=== PATIENT | female | born 1995 | race Caucasian/White ===

== ENCOUNTER 2019-10-12 10:57 | Emergency (ER) | payer OTHER, MEDICAID, SELFPAY ==
[2019-10-12 11:07] VITALS: BP 129/74; PULSE 74; RESP 18; TEMP 36.9; O2SAT 99; BMI 38.4
--- NOTE | 2019-10-12 11:15 | ED.SKABFB ---
HPI - Skin/Abscess/Foreign Bdy <ISMA BuiP - Last Filed: 10/12/19 12:41> General Chief complaint: Skin/Abscess/Foreign Body Stated complaint: possible infection of R big toe, painful Time Seen by Provider: 10/12/19 11:01 Source: patient Mode of arrival: Family Vehicle Limitations: no limitations History of Present Illness HPI narrative: This is a 24 year female, some day smoker, presents to ED with significant other with chief complain of right great toe discomfort. Patient reports she had bumped her great toe couple of months ago since then her nail has grown weak and slightly lifted off from the nail bed. She trimmed her toenail short a couple of days ago afraid that it will catch on something and could be pulled up/off since then she has been having constant throbbing discomfort as 6/10 with occasional increase in pain. Patient denies fever, drainage, increasing redness or warmth on affected site. Patient tends to have ingrown toenail but it has not been this bad. Patient reports unable to wear regular shoes due to discomfort. Reports updated tetanus immunization. Related Data Previous Rx's Medication Instructions Recorded triamcinolone acetonide 1 applictn TOP BID #15 gram 10/12/19 Allergies Allergy/AdvReac Type Severity Reaction Status Date / Time No Known Drug Allergies Allergy Verified 10/12/19 11:13 Review of Systems <SUBHASH Bui - Last Filed: 10/12/19 12:41> Review of Systems Narrative: General: Denies fever, chills, fatigue, malaise, sweats. HEENT: Denies sinus pain, ear pain, sore throat, difficulty swallowing, dizziness. Respiratory: Denies dyspnea, cough, wheezing, hemoptysis, sputum. Cardiovascular: Denies chest pain, palpitations, orthopnea, edema. Gastrointestinal: Denies nausea, vomiting, abdominal pain, diarrhea, constipation, melena. : Denies dysuria, frequency, incontinence, hematuria, urinary retention. Musculoskeletal: See HPI Skin: Denies rash, skin lesions, or other. Neurologic: Denies weakness, headache, numbness, change in speech, confusion, seizures, incoordination. Psychiatric: No concerning psychosocial issues. 12-point review of systems is negative except for those stated above. Patient History <SUBHASH Bui - Last Filed: 10/12/19 12:41> Surgical History Hx of tonsillectomy (Acute) Social History Smoking Status: Current some day smoker Smoking Status: Current some day smoker tobacco type: cigarettes alcohol intake frequency: 0-2 drinks per day Substance Use Type: does not use Exam <SUBHASH Bui - Last Filed: 10/12/19 12:41> Narrative Exam Narrative: General appearance: well developed, well nourished, in no acute distress. Head: normocephalic, atraumatic, no scalp lesions, non-tender. ENT: Hearing grossly intact. Nose without bleeding, purulent dischargedeviation. Mucous membrane moist, no mucosal lesion. Throat without erythema, tonsillar hypertrophy or exudate. Uvula in midline, airway patent. Neck/Thyroid: neck supple, full range of motion, no visible masses or meningeal signs. No JVD, non-tender without lymphadenopathy. Skin: no suspicious rashes, lesions over visible areas. Warm and dry and appropriate color for ethnicity. Heart: no clubbing, no cyanosis, no edema. Lungs: Breathing even and unlabored. No stridor. No accessory muscles used. Able to speak in full sentences. Chest: normal shape and expansion. Abdomen: non-obese, non-distended. Neurologic: alert and oriented. Cognitive exam, MARKETING CONSULTANT and PNS grossly intact on informal exam. Psych: good eye contact, normal affect. Initial Vital Signs Initial Vital Signs: Vital Signs Temperature 98.4 F 10/12/19 11:07 Pulse Rate 74 10/12/19 11:07 Respiratory Rate 18 10/12/19 11:07 Blood Pressure 129/74 10/12/19 11:07 Pulse Oximetry 99 10/12/19 11:07 Extrem Right lower extremity: foot Details: normal to inspection (Great toenails grew out off the skin and curved into lateral nail folds and into skin), tenderness Location: of the great toe Location: at the distal phalanx (Around the nail), toes with normal ROM, no edema, vascular exam Details: dorsalis pedis pulse present and normal capillary refill and motor-sensory exam Details: light-touch normal; no unusual warmth, no abrasion, no laceration, no ecchymosis and no foreign bodies <Kranthi Dumont DO - Last Filed: 10/13/19 07:02> Initial Vital Signs Initial Vital Signs: Vital Signs Temperature 98.4 F 10/12/19 11:07 Pulse Rate 74 10/12/19 11:07 Respiratory Rate 18 10/12/19 11:07 Blood Pressure 129/74 10/12/19 11:07 Pulse Oximetry 99 10/12/19 11:07 Course <[facility] - Last Filed: 10/12/19 12:41> Vital Signs Vital signs: Vital Signs - 8 hr 10/12/19 11:07 10/12/19 11:44 10/12/19 11:52 Temperature 98.4 F Pulse Rate 74 74 66 Respiratory Rate 18 18 18 Blood Pressure 129/74 114/69 Blood Pressure [Left Arm] 114/69 Pulse Oximetry 99 97 99 <Kranthi Dumont DO - Last Filed: 10/13/19 07:02> Vital Signs Vital signs: Vital Signs - 8 hr 10/12/19 11:07 10/12/19 11:44 10/12/19 11:52 Temperature 98.4 F Pulse Rate 74 74 66 Respiratory Rate 18 18 18 Blood Pressure 129/74 114/69 Blood Pressure [Left Arm] 114/69 Pulse Oximetry 99 97 99 MDM - Skin/Abscess/Foreign Bdy <[facility] - Last Filed: 10/12/19 12:41> Differential Diagnosis Differential diagnosis: Likely other (Ingrown toenail) Medical Records Attestation: I reviewed the patient's medical records. MDM Narrative Medical decision making narrative: This is 24-year-old female who presents to ED with right great toe ingrown toenail without signs of infection for last couple of days after she trimmed her toenails short. She had injured affected toe couple of months ago by stumped on during roller [place]. Patient discharged to home with a referral to trade union official and advised to start with conservative therapy with soaking affected foot in warm soapy water or Epsom salt water and to use high potency steroids cream on affected site. Patient also advised to push nail folds away from the nail or use dental floss gain some space in between nail and nail folds and to use be toe box shoes for comfort. Patient advised to monitor for signs and symptoms for infection and home treatment if this occurs reviewed along the return precautions. Patient verbalized understanding and in agreement with the treatment plan. Discharge Plan Departure Patient Disposition: Home Clinical Impression: Ingrowing toenail of right foot Discharge Date/Time: 10/12/19 11:57 Instructions: DI for Ingrown Toenail Activity Restrictions/Additional Instructions: You have been diagnosed with [ingrown toenail w/o signs of infection at this time. Please soak your affected food in warm soapy water for 10-20 minutes 3 times a day for 1-2 weeks or Epsom salt water and pushing the lateral nail fold away from the nail plates. You can use corticosteroid ointment after soaking to reduce inflammation. You can also use dental floss to separate the nail plate from the lateral nail folds. ]. What to do: *Take your medications as directed. *Follow up with your primary care provider in 2-3 days, call for an appointment. Let them know you were seen in the ED and that we asked you to be seen in follow up. *Return to ED if you have any new, worsening, or concerning symptoms, such as [increasing redness, pustule, purulent discharge, warmth, increasing pain, fever or any acute concerns. If this happens, he can also try soaking her foot with mixture of hydrogen peroxide and water 1:1 strength 2 to 3 times a day and apply bacitracin/Neosporin on affected side]. Prescriptions: New triamcinolone acetonide 0.5 % cream 1 applictn TOP BID Qty: 15 RF: 0 Referrals: [facility] [Outside] Martínez Santana DPM [Physician] -
[2019-10-12 11:44] VITALS: BP 114/69; PULSE 74; RESP 18; O2SAT 97
[2019-10-12 11:52] VITALS: BP 114/69; PULSE 66; RESP 18; O2SAT 99
== END 2019-10-12 11:57 | disposition home or self-care (01) ==
LOC: ED 11:45
PROVIDERS: Emergency Provider Nurse Practitioner Family
DX: L60.0 Ingrowing nail (principal)
CPT/HCPCS: 99281

== ENCOUNTER 2019-10-25 13:07 | Emergency (ER) | payer OTHER, MEDICAID, SELFPAY ==
[2019-10-25 13:27] VITALS: BP 109/59; PULSE 81; RESP 16; TEMP 36.9; O2SAT 99; BMI 38.4
[2019-10-25 13:39] LABS: Add Manual Diff / Slide Review NO; Basophils Absolute Auto 0 /uL (0-100); Basophils Percent Auto 0.5 % (0-2); Eosinophils Absolute Auto 100 /uL (0-450); Eosinophils Percent Auto 1.2 % (2-4); Hemoglobin 14.1 g/dL (12.0-16.0); INR 1.1 (0.9-1.3); Lymphocytes Absolute Auto 2100 /uL (1100-4500); Lymphocytes Percent Auto 22.8 % (25-40); Mean Corpuscular HGB Conc 34.4 % (30-36); Mean Corpuscular Hemoglobin 31.3 PG (26-34); Monocytes Absolute Auto 700 /uL (0-900); Monocytes Percent Auto 7.1 % (3-14); Neutrophils Absolute Auto 6400 /uL (1500-7000); Neutrophils Percent Auto 68.4 % (50-75); Platelet Count 214 X10^3/uL (150-400); Prothrombin Time 13.1 SECONDS (10.1-12.7); Red Blood Cell Count 4.51 X10^6/uL (4.0-5.2); Red Cell Distribution Width 12.9 % (11.6-14.8); White Blood Cell Count 9.3 X10^3/uL (4.5-11.0)
[2019-10-25 13:42] LABS: PTT Partial Thromboplastin Tim 29 SECONDS (26.4-36.2)
[2019-10-25 13:44] LABS: Alanine Aminotransferase 20 IU/L (<35); Albumin 4.5 g/dL (3.5-5.0); Albumin Globulin Ratio 1.4 (1.0-2.8); Alkaline Phosphatase 75 U/L (38-126); Appearance Urine UA SL CLOUDY; Aspartate Aminotransferase 26 IU/L (14-36); BUN Creatinine Ratio 15.7 (6-22); Bilirubin Total 0.3 mg/dL (0.2-1.3); Bilirubin Urine UA NEGATIVE (NEGATIVE); Blood Urea Nitrogen 11 mg/dL (7-17); Calcium 9.5 mg/dL (8.4-10.2); Carbon Dioxide 24 mmol/L (22-32); Chloride 106 mmol/L (98-107); Color Urine UA YELLOW; Estimated Glomerular Filt Rate > 60.0 mL/min (>60); Globulin 3.3 g/dL (1.7-4.1); Glucose 103 mg/dL (70-100); Glucose Urine UA NEGATIVE (Negative); HEMOLYSIS < 15 (0-50); Ketones Urine UA NEGATIVE (NEGATIVE); Leukocyte Esterase Urine UA 3+ (NEGATIVE); Lipase 131 U/L (23-300); Nitrite Urine UA NEGATIVE (Negative); Occult Blood Urine UA NEGATIVE (Negative); Protein Urine UA NEGATIVE (Negative); Sodium 139 mmol/L (137-145); Specific Gravity Urine UA 1.015 (1.000-1.035); Total Protein 7.8 g/dL (6.3-8.2); Urobilinogen Urine UA 0.2 E.U./dL (0.2)
[2019-10-25 13:54] LABS: pH Urine UA 7.5 (4.5-8.0)
[2019-10-25 14:00] LABS: Bacteria Urine Many (>30); Culture Indicated Urine Cult Not Indicated; RBC Urine 0-1/HPF (0-5/HPF); Squamous Epithelial Cell Urine 5-10 /HPF (0-5/HPF); WBC Urine 5-10/HPF (0-5/HPF)
--- NOTE | 2019-10-25 14:19 | DI.CT.S_ITS ---
PROCEDURE: CT ABDOMEN PELVIS W CON INDICATIONS: right lower and upper quadrant abdominal pain. r/o appendici TECHNIQUE: After the administration of intravenous contrast, 5 mm thick sections acquired from the diaphragm to the symphysis. 5 mm coronal and sagittal reformats were acquired. For radiation dose reduction, the following was used: automated exposure control, adjustment of mA and/or kV according to patient size. COMPARISON: None. FINDINGS: Image quality: Excellent. ABDOMEN: Lung bases: Lung bases are clear. Heart size is normal. Solid organs: Liver is normal in size and enhancement. Gallbladder is contracted. Tiny calcified stones in the dependent portion of gallbladder lumen is seen. Questionable gallbladder wall thickening and enhancement is seen. No gross pericholecystic fluid. Biliary system is non dilated. Pancreas enhances normally. Spleen is normal in size and enhancement. No adrenal nodules. Kidneys demonstrate normal size and enhancement, without hydronephrosis. Peritoneum and bowel: Bowel loops demonstrate normal wall thickness and caliber. No free fluid or air. The appendix is visualized and is normal in size and appearance. Nodes and vessels: No retroperitoneal lymphadenopathy is seen by size criteria. A few mildly prominent lymph nodes are seen in right lower quadrant mesentery and measures up to 5-6 mm in size which can represent mild mesenteric adenitis. Aorta and inferior vena cava are normal in size. Miscellaneous: No ventral hernias. PELVIS: Genitourinary: Bladder wall thickness is normal. Miscellaneous: No inguinal hernias or adenopathy. Bones: No suspicious bony lesions. No vertebral body compression fractures. IMPRESSION: 1. Normal appendix. No bowel obstruction. No free fluid or free air. Nonspecific borderline prominent right lower quadrant mesenteric lymph nodes which can be seen a case of mild mesenteric adenitis. 2. Cholelithiasis in contracted gallbladder. Questionable gallbladder wall thickening, developing acute cholecystitis cannot be excluded, suggest clinical correlation. No biliary ductal dilatation. Dictated by: Joseph Curiel M.D. on 10/25/2019 at 15:33 Approved by: Joseph Curiel M.D. on 10/25/2019 at 15:36
--- NOTE | 2019-10-25 14:20 | ED_ITS ---
HPI - Abdominal Pain General Chief Complaint: Abdominal Pain Stated Complaint: abdominal pain since last night and dizzy Time Seen by Provider: 10/25/19 13:48 Mode of arrival: Ambulatory History of Present Illness HPI narrative: The patient is a 24-year-old female who states that she developed right-sided abdominal pain and points to the right lower quadrant last night at approximately 9:00 a.m. p.m.. She describes the pain as a sharp pain that is constant. Movement makes the pain worse. She denies any fall or injury. She denies any significant back pain. She denies being . She has had no surgery on her abdomen. She has not had her gallbladder removed nor appendix. She denies a history of kidney stones or kidney infections. She denies any dysuria pyuria hematuria urinary frequency or urgency. She has had no chills no fever sweats. She has had nausea without vomiting no diarrhea no change in her bowel movements. She denies any melena or hematochezia. She states that she has been dizzy and lightheaded but has had no palpitations chest pain irregular heartbeat cough for shortness of breath. She denies a headache. 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 She vapor but does not drink alcohol use drugs. She denies a history of diabetes mellitus hypertension or asthma. Related Data Home Medications Medication Instructions Recorded Confirmed etonogestrel [Nexplanon] 1 mg SUBDERMAL .ONCE 10/25/19 10/25/19 Previous Rx's Medication Instructions Recorded triamcinolone acetonide 1 applictn TOP BID #15 gram 10/12/19 dicyclomine 20 mg PO QID PRN #15 tab 10/25/19 hydrocodone-acetaminophen [Marcella] 1 tab PO Q4-6H PRN #12 tab 10/25/19 ondansetron HCl [Zofran] 4 mg PO Q6H PRN #12 tab 10/25/19 Allergies Allergy/AdvReac Type Severity Reaction Status Date / Time No Known Drug Allergies Allergy Verified 10/12/19 11:13 Review of Systems Review of Systems Narrative: Review of systems were negative except for those mentioned in the history of present illness. Patient History Surgical History Hx of tonsillectomy (Acute) Social History Smoking Status: Current some day smoker Smoking Status: Current some day smoker tobacco type: cigarettes alcohol intake frequency: 0-2 drinks per day Substance Use Type: does not use Exam Narrative Exam Narrative: PHYSICAL EXAM: CONSTITUTIONAL: Awake, Alert, Oriented, Coherent, Cooperative in NAD. Does not appear toxic or ill. HEAD: AT/NC EENT: PERRL, FROM of eyes, no discharge, No epistaxis or nasal drainage Oral mucosa is moist and pink, posterior pharynx is without erythema or exudate. NECK: Supple, no obvious JVD, Trachea is midline without stridor, no palpable LN or masses. SPINE: No gross deformity, no palpable tenderness of the cervical, thoracic, lumbar or sacral spine. No CVA tenderness. THORAX: No deformity, retractions, chest wall tenderness, . LUNGS: Clear with symmetrical breath sounds without respiratory distress HEART: Normal heart tones, regular rhythm and rate without murmur. ABDOMEN: Soft, tender in the hypochondria at the junction between the right upper quadrant and right lower quadrant and slightly more in the right upper quadrant. There was mild guarding without rebound rigidity. There were no palpable organomegaly or masses. EXTREMITIES: No edema, cyanosis, deformity or tenderness. SKIN: No rash, bruising, petechiae or purpura. NEURO: Awake, alert, oriented, conversive, cranial nerves II-XII are symmetrical and normal, moves all 4 extremities and is ambulatory Initial Vital Signs Initial Vital Signs: Vital Signs Temperature 98.4 F 10/25/19 13:27 Pulse Rate 81 10/25/19 13:27 Respiratory Rate 16 10/25/19 13:27 Blood Pressure 109/59 L 10/25/19 13:27 Pulse Oximetry 99 10/25/19 13:27 Course Course Course Narrative: 1549: The patient's CT scan of her abdomen revealed: 1. Normal appendix. No bowel obstruction. No free fluid or free air. Nonspecific borderline prominent right lower quadrant mesenteric lymph nodes which can be seen in and mild mesenteric adenitis. 2. Cholelithiasis in contracted gallbladder. Questionable gallbladder wall thickening with developing acute cholecystitis cannot be excluded suggest clinical correlation. No biliary ductal dilation. White blood count is 9.3. Hemoglobin is 14.1. Liver functions including alkaline phosphatase are within normal limits as well as lipase. The patient's urine is a non clean catch uri ne. I will call and discussed the patient with the on-call general surgeon. 1623 I discussed the patient with Dr. Butt the general surgeon on-call and the patient will be referred to his clinic. Orders Ordered: Discontinued Medications Ketorolac Tromethamine (Toradol) 30 mg IV NOW ONE Stop: 10/25/19 14:19 Last Admin: 10/25/19 14:28 Dose: 30 mg Documented by: CHANDLER Morphine Sulfate (Morphine) 4 mg IV NOW ONE Stop: 10/25/19 16:49 Last Admin: 10/25/19 16:53 Dose: 4 mg Documented by: CHANDLER Ondansetron HCl (Zofran) 4 mg IV NOW ONE Stop: 10/25/19 14:19 Last Admin: 10/25/19 14:28 Dose: 4 mg Documented by: CHANDLER Vital Signs Vital signs: Vital Signs - 8 hr 10/25/19 13:27 Temperature 98.4 F Pulse Rate 81 Respiratory Rate 16 Blood Pressure 109/59 L Pulse Oximetry 99 MDM - Abdominal Pain Lab Data Result diagrams: 10/25/19 13:24 10/25/19 13:24 Labs: Lab Results 10/25/19 10/25/19 10/25/19 Range/Units 13:24 13:24 13:24 WBC 9.3 (4.5-11.0) X10^3/uL RBC 4.51 (4.0-5.2) X10^6/uL Hgb 14.1 (12.0-16.0) g/dL Hct 41.0 (36-46) % MCV 91.0 (80-100) fL MCH 31.3 (26-34) PG MCHC 34.4 (30-36) % RDW 12.9 (11.6-14.8) % Plt Count 214 (150-400) X10^3/uL Neut % (Auto) 68.4 (50-75) % Lymph % (Auto) 22.8 L (25-40) % [place] % (Auto) 7.1 (3-14) % Eos % (Auto) 1.2 L (2-4) % Baso % (Auto) 0.5 (0-2) % Neut # (Auto) 6400 (8354-5269) /uL Lymph # (Auto) 2100 (8232-7904) /uL [place] # (Auto) 700 (0-900) /uL Eos # (Auto) 100 (0-450) /uL Baso # (Auto) 0 (0-100) /uL PT 13.1 H (10.1-12.7) SECONDS INR 1.1 (0.9-1.3) APTT 29 (26.4-36.2) SECONDS Sodium (137-145) mmol/L Potassium (3.4-5.1) mmol/L Chloride (98-107) mmol/L Carbon Dioxide (22-32) mmol/L BUN (7-17) mg/dL Creatinine (0.52-1.04) mg/dL Estimated GFR (>60) mL/min BUN/Creatinine Ratio (6-22) Glucose (70-100) mg/dL Calcium (8.4-10.2) mg/dL Total Bilirubin (0.2-1.3) mg/dL AST (14-36) IU/L ALT (<35) IU/L Alkaline Phosphatase (38-126) U/L Total Protein (6.3-8.2) g/dL Albumin (3.5-5.0) g/dL Globulin (1.7-4.1) g/dL Albumin/Globulin Ratio (1.0-2.8) Lipase (23-300) U/L Urine Color Yellow Urine Appearance Sl cloudy Urine pH 7.5 (4.5-8.0) Ur Specific [place] 1.015 (1.000-1.035) Urine Protein Negative (Negative) Urine Glucose (UA) Negative (Negative) g/dL Urine Ketones Negative (NEGATIVE) Urine Occult Blood Negative (Negative) Urine Nitrate Negative (Negative) Urine Bilirubin Negative (NEGATIVE) Urine Urobilinogen 0.2 (0.2) E.U./dL Ur Leukocyte Esterase 3+ H (NEGATIVE) Urine RBC 0-1/hpf (0-5/HPF) Urine WBC 5-10/hpf H (0-5/HPF) Ur Squamous Epith Cells 5-10 /hpf H (0-5/HPF) Urine Bacteria Many (>30) H (None) Ur Culture Indicated? Cult not indicated Urine Test (Negative) 10/25/19 10/25/19 Range/Units 13:24 13:24 WBC (4.5-11.0) X10^3/uL RBC (4.0-5.2) X10^6/uL Hgb (12.0-16.0) g/dL Hct (36-46) % MCV (80-100) fL MCH (26-34) PG MCHC (30-36) % RDW (11.6-14.8) % Plt Count (150-400) X10^3/uL Neut % (Auto) (50-75) % Lymph % (Auto) (25-40) % [place] % (Auto) (3-14) % Eos % (Auto) (2-4) % Baso % (Auto) (0-2) % Neut # (Auto) (1651-3990) /uL Lymph # (Auto) (7741-1312) /uL [place] # (Auto) (0-900) /uL Eos # (Auto) (0-450) /uL Baso # (Auto) (0-100) /uL PT (10.1-12.7) SECONDS INR (0.9-1.3) APTT (26.4-36.2) SECONDS Sodium 139 (137-145) mmol/L Potassium 4.0 (3.4-5.1) mmol/L Chloride 106 (98-107) mmol/L Carbon Dioxide 24 (22-32) mmol/L BUN 11 (7-17) mg/dL Creatinine 0.70 (0.52-1.04) mg/dL Estimated GFR > 60.0 (>60) mL/min BUN/Creatinine Ratio 15.7 (6-22) Glucose 103 H (70-100) mg/dL Calcium 9.5 (8.4-10.2) mg/dL Total Bilirubin 0.3 (0.2-1.3) mg/dL AST 26 (14-36) IU/L ALT 20 (<35) IU/L Alkaline Phosphatase 75 (38-126) U/L Total Protein 7.8 (6.3-8.2) g/dL Albumin 4.5 (3.5-5.0) g/dL Globulin 3.3 (1.7-4.1) g/dL Albumin/Globulin Ratio 1.4 (1.0-2.8) Lipase 131 (23-300) U/L Urine Color Urine Appearance Urine pH (4.5-8.0) Ur Specific [place] (1.000-1.035) Urine Protein (Negative) Urine Glucose (UA) (Negative) g/dL Urine Ketones (NEGATIVE) Urine Occult Blood (Negative) Urine Nitrate (Negative) Urine Bilirubin (NEGATIVE) Urine Urobilinogen (0.2) E.U./dL Ur Leukocyte Esterase (NEGATIVE) Urine RBC (0-5/HPF) Urine WBC (0-5/HPF) Ur Squamous Epith Cells (0-5/HPF) Urine Bacteria (None) Ur Culture Indicated? Urine Test Negative (Negative) Discharge Plan Departure Patient Disposition: Home Clinical Impression: Cholelithiasis and acute cholecystitis without obstruction Abdominal pain Qualifiers: Abdominal location: right upper quadrant Qualified Code(s): R10.11 - Right upper quadrant pain Discharge Date/Time: 10/25/19 17:19 Instructions: DI for Gallstones, DI for Abdominal Pain-Adult Activity Restrictions/Additional Instructions: 1. Call Dr. Fry's Office/clinic to make an appointment to have your gallbladder were removed electively. 2. Avoid fatty meals which stimulate her gallbladder to contract and cause should have pain and discomfort. 3. If you develop pain and discomfort unrelieved by the medications provided, fever, or persistent nausea and vomiting you need to return to the emergency department. 4. Return to the emergency department if you develop intractable pain and discomfort or persistent fever. Prescriptions: New ondansetron HCl [Zofran] 4 mg tablet 4 mg PO Q6H PRN (Reason: nausea and vomiting) Qty: 12 RF: 0 hydrocodone-acetaminophen [Marcella] 5-325 mg tablet 1 tab PO Q4-6H PRN (Reason: pain) Qty: 12 RF: 0 dicyclomine 20 mg tablet 20 mg PO QID PRN (Reason: abdominal pain) Qty: 15 RF: 0 No Action triamcinolone acetonide 0.5 % cream 1 applictn TOP BID Qty: 15 RF: 0 Nexplanon 68 mg Implant 1 mg SUBDERMAL .ONCE RF: 0
[2019-10-25] MEDS: ONDANSETRON 4 MG/2 ML INJ IV (14:28)
[2019-10-25] MEDS: KETOROLAC 60 MG/2 ML VIAL 30 MG IV (14:28)
[2019-10-25 14:39] LABS: Pregnancy Test Urine Negative (Negative)
[2019-10-25] MEDS: MORPHINE 4 MG/ML INJ IV (16:53)
[2019-10-25 16:59] VITALS: BP 101/62; PULSE 62; RESP 16; O2SAT 97
== END 2019-10-25 17:19 | disposition home or self-care (01) ==
PROVIDERS: Nurse Practitioner Family; Emergency Provider Emergency Medicine
DX: K80.00 Calculus of gallbladder with acute cholecystitis without obstruction (principal); R10.11 Right upper quadrant pain
CPT/HCPCS: 36415; 74177; 80053; 81001; 81025; 83690; 85025; 85610; 85730; 96374; 96375; 99284; J1885; J2270; J2405; Q9967

== ENCOUNTER 2019-10-26 14:58 | Emergency (ER) | payer OTHER, MEDICAID, SELFPAY ==
[2019-10-26 15:25] VITALS: BP 115/65; PULSE 65; RESP 20; TEMP 36.4; O2SAT 98
--- NOTE | 2019-10-26 17:32 | DI.US.S_ITS ---
PROCEDURE: US ABDOMEN LIMITED INDICATIONS: KNOWN GALLSTONES; POSSIBLE CHOLECYSTITIS TECHNIQUE: Real-time focused scanning was performed of the abdomen, with image documentation. COMPARISON: [facility], CT, CT ABDOMEN PELVIS W CON, 10/25/2019, 14:55. FINDINGS: Liver is normal in size with a normal echo pattern. There are gallstones present in the gallbladder. There is no gallbladder wall thickening. The gallbladder wall measures 1.3 mm. No fluid around the gallbladder. No sonographic Weiss's signs. Visualized portions of the pancreas are unremarkable. Normal size right kidney without hydronephrosis. IMPRESSION: Cholelithiasis. No sonographic evidence of acute cholecystitis. Dictated by: Rubén Rojas M.D. on 10/26/2019 at 19:14 Approved by: Rubén Rojas M.D. on 10/26/2019 at 19:16
[2019-10-26] MEDS: KETOROLAC 60 MG/2 ML VIAL 30 MG IV (17:45)
[2019-10-26 17:55] LABS: Add Manual Diff / Slide Review NO; Basophils Absolute Auto 0 /uL (0-100); Basophils Percent Auto 0.3 % (0-2); Eosinophils Absolute Auto 100 /uL (0-450); Eosinophils Percent Auto 0.8 % (2-4); Hematocrit 40.3 % (36-46); Hemoglobin 13.7 g/dL (12.0-16.0); Lymphocytes Absolute Auto 2300 /uL (1100-4500); Lymphocytes Percent Auto 23.6 % (25-40); Monocytes Absolute Auto 600 /uL (0-900); Monocytes Percent Auto 6.7 % (3-14); Neutrophils Absolute Auto 6600 /uL (1500-7000); Neutrophils Percent Auto 68.6 % (50-75); Platelet Count 218 X10^3/uL (150-400); Red Blood Cell Count 4.42 X10^6/uL (4.0-5.2); White Blood Cell Count 9.6 X10^3/uL (4.5-11.0)
[2019-10-26 18:27] LABS: Alanine Aminotransferase 20 IU/L (<35); Albumin 4.2 g/dL (3.5-5.0); Albumin Globulin Ratio 1.3 (1.0-2.8); Alkaline Phosphatase 67 U/L (38-126); Aspartate Aminotransferase 27 IU/L (14-36); BUN Creatinine Ratio 19.4 (6-22); Bilirubin Total 0.3 mg/dL (0.2-1.3); Blood Urea Nitrogen 14 mg/dL (7-17); Calcium 9.2 mg/dL (8.4-10.2); Carbon Dioxide 27 mmol/L (22-32); Chloride 104 mmol/L (98-107); Estimated Glomerular Filt Rate > 60.0 mL/min (>60); Globulin 3.3 g/dL (1.7-4.1); Glucose 86 mg/dL (70-100); HEMOLYSIS < 15 (0-50); Lipase 113 U/L (23-300); Potassium 4.2 mmol/L (3.4-5.1); Sodium 138 mmol/L (137-145); Total Protein 7.5 g/dL (6.3-8.2)
--- NOTE | 2019-10-26 18:31 | DI.US.S_ITS ---
PROCEDURE: US PELVIC COMPLETE INDICATIONS: RIGHT PELVIC PAIN TECHNIQUE: Real-time scanning was performed of the pelvic organs, with image documentation. Additional endovaginal scanning was necessary due to incomplete visualization of the adnexal and endometrial structures by transabdominal scanning. COMPARISON: None. FINDINGS: Transabdominal scanning: Limited scanning through the kidneys shows no hydronephrosis. No pathologic free abdominal or pelvic fluid. Endovaginal scanning: Uterus: Uterus is normal in size at 8.2 x 4.1 x 5.6 cm cm. The endometrium measures 6.0 mm in combined thickness. Ovaries: Right ovary measures 2.9 x 2.3 x 2.4 cm. Left ovary measures 4.4 x 2.7 x 2.9 cm. There is a left ovarian simple cyst measuring 2.4 cm in maximum diameter. It is duplex vascularity in both ovaries. There is physiologic fluid present in the pelvis. IMPRESSION: Unremarkable pelvic ultrasound. Dictated by: Rubén Rojas M.D. on 10/26/2019 at 19:16 Approved by: Rubén Rojas M.D. on 10/26/2019 at 19:18
[2019-10-26 19:09] LABS: Amorphous Sediment Urine 1+; Bacteria Urine Few (2-10); Culture Indicated Urine Specimen Cultured; RBC Urine 0-1/HPF (0-5/HPF); Squamous Epithelial Cell Urine 1-5 /HPF (0-5/HPF); WBC Urine 5-10/HPF (0-5/HPF)
[2019-10-26] MEDS: NITROFURANTOIN ER 100 MG CAPSULE PO (19:48)
--- NOTE | 2019-10-26 22:37 | ED.ABDPAIN ---
HPI - Abdominal Pain <SUBHASH Bui - Last Filed: 10/26/19 22:55> General Chief Complaint: Abdominal Pain Stated Complaint: came in yesturday for gallstones hurting still Time Seen by Provider: 10/26/19 16:52 Source: patient Mode of arrival: Ambulatory Limitations: no limitations History of Present Illness HPI narrative: This is a 24-year-old female, current vapor, who presents to ED with her friend with chief complain of nonradiating right side abdominal discomfort. Patient denies fever, chills, nausea or vomiting. Patient was seen in ED yesterday and was diagnosed with gallstone and discharged to home with hydrocodone, Bentyl and Zofran. Patient was advised to follow up with [facility] surgery for elective procedure to remove gallstones and when patient contacted clinic today she was told that the surgery Clinic does not except for medical insurance for elective surgery and only emergency surgery will be covered. Patient denies urinary symptoms. LMP was 10/02/2019 and denies unusual vaginal discharge or bleeding. Patient states she has been taking [place] but pain is not adequately controlled and it is making her drowsy. Related Data Home Medications Medication Instructions Recorded Confirmed etonogestrel [Nexplanon] 1 mg SUBDERMAL .ONCE 10/25/19 10/26/19 Previous Rx's Medication Instructions Recorded triamcinolone acetonide 1 applictn TOP BID #15 gram 10/12/19 dicyclomine 20 mg PO QID PRN #15 tab 10/25/19 hydrocodone-acetaminophen [[place]] 1 tab PO Q4-6H PRN #12 tab 10/25/19 ondansetron HCl [Zofran] 4 mg PO Q6H PRN #12 tab 10/25/19 nitrofurantoin monohyd/m-cryst 100 mg PO BID 5 Days #9 cap 10/26/19 [Macrobid] Allergies Allergy/AdvReac Type Severity Reaction Status Date / Time No Known Drug Allergies Allergy Verified 10/26/19 15:28 Review of Systems <SUBHASH Bui - Last Filed: 10/26/19 22:55> Review of Systems Narrative: General: Denies fever, chills, fatigue, malaise, sweats. HEENT: Denies sinus pain, ear pain, sore throat, difficulty swallowing, dizziness. Respiratory: Denies dyspnea, cough, wheezing, hemoptysis, sputum. Cardiovascular: Denies chest pain, palpitations, orthopnea, edema. Gastrointestinal: See HPI : Denies dysuria, frequency, incontinence, hematuria, urinary retention. Musculoskeletal: Denies weakness, joint pain or bony pain. Skin: Denies rash, skin lesions, or other. Neurologic: Denies weakness, headache, numbness, change in speech, confusion, seizures, incoordination. Psychiatric: No concerning psychosocial issues. 12-point review of systems is negative except for those stated above. Patient History <SUBHASH Bui - Last Filed: 10/26/19 22:55> Surgical History Hx of tonsillectomy (Acute) Social History Smoking Status: Current some day smoker Smoking Status: Current some day smoker tobacco type: cigarettes alcohol intake frequency: 0-2 drinks per day Substance Use Type: does not use Exam <SUBHASH Bui - Last Filed: 10/26/19 22:55> Narrative Exam Narrative: GEN: Alert, oriented x 3, well appearing and nourished, and in no acute distress. Head: Normal cephalic, atraumatic. No scalp or temporal tenderness, palpable mass or rash. EYES: Pupils are equal, round, and reactive to light and accommodation. Extraocular muscles are intact bilaterally. There is no subconjunctival hemorrhage, exudate and sclera non-icteric. ENT: Bilateral auditory canals and tympanic membranes clear. Hearing grossly intact. Nose without bleeding, purulent discharge or deviation. Facial sinuses nontender to palpate. Mucous membrane moist, no mucosal lesion. Throat without erythema, tonsillar hypertrophy or exudate. Uvula in midline, airway patent. Neck: Trachea in midline. No JVD, non-tender without lymphadenopathy. No masses or thyroid megaly. Supple, non-tender and no meningeal signs. CARDIAC: Normal regular rate and rhythm without murmurs, gallops, or rubs. No chest wall tenderness. No peripheral edema, cyanosis or pallor. Capillary refill is less than 2 seconds. RESPIRATORY: Lungs are clear to auscultate bilaterally. No cough, wheezes, rales, or rhonchi. No stridor, respiratory distress, increase work of breathing, or accessary muscle used. ABD: Abdomen obese, soft, nontender and non-distended. No guarding or rebound tenderness to palpate. Tender to palpate in right mid and low abdomen. Negative Weiss's sign. Bowel sounds are normal in all 4 quadrants. There is no palpable masses or organomegaly. EXT: Full painless ROM of all extremities with no loss of sensation, strength, effusion or edema. SKIN: Warm, dry, normal color for patient. No erythema, lesions or rash over visible areas. BACK: Nontender without deformity or crepitance. No flank tenderness. NEUROLOGICAL: Alert and oriented to place, time and person. Sensation and motor function intact bilaterally. No facial droops, dysphasia. PSYCHIATRIC: Good judgement and reason, without hallucinations, abnormal affect or abnormal behaviors during the examination. Patient is not suicidal. Initial Vital Signs Initial Vital Signs: Vital Signs Temperature 97.6 F 10/26/19 15:25 Pulse Rate 65 10/26/19 15:25 Respiratory Rate 20 10/26/19 15:25 Blood Pressure 115/65 10/26/19 15:25 Pulse Oximetry 98 10/26/19 15:25 <Janak Carias MD - Last Filed: 11/02/19 17:59> Initial Vital Signs Initial Vital Signs: Vital Signs Temperature 97.6 F 10/26/19 15:25 Pulse Rate 65 10/26/19 15:25 Respiratory Rate 20 10/26/19 15:25 Blood Pressure 115/65 10/26/19 15:25 Pulse Oximetry 98 10/26/19 15:25 Scores <SUBHASH Bui - Last Filed: 10/26/19 22:55> GCS Wagner coma scale eye opening: Spontaneous Wagner coma scale verbal response: Orientated [place] coma scale motor response: Obey commands [place] coma scale total score: 15 Course <SUBHASH Bui - Last Filed: 10/26/19 22:55> Orders Ordered: Discontinued Medications Ketorolac Tromethamine (Toradol) 30 mg IV NOW ONE Stop: 10/26/19 17:33 Last Admin: 10/26/19 17:45 Dose: 30 mg Documented by: SMICHEAU Nitrofurantoin Macrocrystals (Macrobid 100 Mg Capsule) 100 mg PO NOW ONE Stop: 10/26/19 19:40 Last Admin: 10/26/19 19:48 Dose: 100 mg Documented by: CHERYL Vital Signs Vital signs: Vital Signs - 8 hr 10/26/19 15:25 Temperature 97.6 F Pulse Rate 65 Respiratory Rate 20 Blood Pressure 115/65 Pulse Oximetry 98 <Janak Carias MD - Last Filed: 11/02/19 17:59> Orders Ordered: Discontinued Medications Ketorolac Tromethamine (Toradol) 30 mg IV NOW ONE Stop: 10/26/19 17:33 Last Admin: 10/26/19 17:45 Dose: 30 mg Documented by: PRESLEY Nitrofurantoin Macrocrystals (Macrobid 100 Mg Capsule) 100 mg PO NOW ONE Stop: 10/26/19 19:40 Last Admin: 10/26/19 19:48 Dose: 100 mg Documented by: CHERYL Vital Signs Vital signs: Vital Signs - 8 hr 10/26/19 15:25 Temperature 97.6 F Pulse Rate 65 Respiratory Rate 20 Blood Pressure 115/65 Pulse Oximetry 98 MDM - Abdominal Pain <SUBHASH Bui - Last Filed: 10/26/19 22:55> Differential Diagnosis Differential diagnosis: Likely abdominal pain, acute appendicitis, calculus of kidney, diverticulitis and other (Ectopic , ovarian cyst/mass, ovarian torsion, UTI) Medical Records Attestation: I reviewed the patient's medical records. Lab Data Attestation: I reviewed the patient's lab results. Result diagrams: 10/26/19 17:45 10/26/19 17:45 Labs: Lab Results 10/26/19 10/26/19 10/26/19 Range/Units 17:45 17:45 17:45 WBC 9.6 (4.5-11.0) X10^3/uL RBC 4.42 (4.0-5.2) X10^6/uL Hgb 13.7 (12.0-16.0) g/dL Hct 40.3 (36-46) % MCV 91.0 (80-100) fL MCH 31.0 (26-34) PG MCHC 34.0 (30-36) % RDW 13.0 (11.6-14.8) % Plt Count 218 (150-400) X10^3/uL Neut % (Auto) 68.6 (50-75) % Lymph % (Auto) 23.6 L (25-40) % Falls % (Auto) 6.7 (3-14) % Eos % (Auto) 0.8 L (2-4) % Baso % (Auto) 0.3 (0-2) % Neut # (Auto) 6600 (5875-4561) /uL Lymph # (Auto) 2300 (1847-0535) /uL Falls # (Auto) 600 (0-900) /uL Eos # (Auto) 100 (0-450) /uL Baso # (Auto) 0 (0-100) /uL Sodium 138 (137-145) mmol/L Potassium 4.2 (3.4-5.1) mmol/L Chloride 104 (98-107) mmol/L Carbon Dioxide 27 (22-32) mmol/L BUN 14 (7-17) mg/dL Creatinine 0.72 (0.52-1.04) mg/dL Estimated GFR > 60.0 (>60) mL/min BUN/Creatinine Ratio 19.4 (6-22) Glucose 86 (70-100) mg/dL Calcium 9.2 (8.4-10.2) mg/dL Total Bilirubin 0.3 (0.2-1.3) mg/dL AST 27 (14-36) IU/L ALT 20 (<35) IU/L Alkaline Phosphatase 67 (38-126) U/L Total Protein 7.5 (6.3-8.2) g/dL Albumin 4.2 (3.5-5.0) g/dL Globulin 3.3 (1.7-4.1) g/dL Albumin/Globulin Ratio 1.3 (1.0-2.8) Lipase 113 (23-300) U/L Urine RBC 0-1/hpf (0-5/HPF) Urine WBC 5-10/hpf H (0-5/HPF) Ur Squamous Epith Cells 1-5 /hpf (0-5/HPF) Amorphous Sediment 1+ Urine Bacteria Few (2-10) H (None) Ur Culture Indicated? Specimen cultured Point of care testing: Urine Dip Bedside Urine Glucose Negative Bedside Urine Bilirubin - Negative Bedside Urine Ketone - Negative Urine Specific [place] 1.025 Bedside Urine Occult Blood - Negative Bedside Urine pH 6 Bedside Urine Protein +/- 15 Bedside Urine Urobilinogen +/- 1mg Bedside Urine Nitrite - Negative Bedside Urine Leukocytes +++ 500 Esterase Imaging Data US - abdomen: Radiologist's Impression: [address] [address] Ultrasound Report Signed Patient: Feliz Tirado RMR#: [id number] : 1995Acct:[id number] Age/Sex: 24 / FDate of Service: 10/26/19 Loc: ED Accession Number: [id number] Procedure: US abdomen limited Ordering Provider: Lukasz Smith PROCEDURE: US ABDOMEN LIMITED INDICATIONS: KNOWN GALLSTONES; POSSIBLE CHOLECYSTITIS TECHNIQUE: Real-time focused scanning was performed of the abdomen, with image documentation. COMPARISON: [facility], CT, CT ABDOMEN PELVIS W CON, 10/25/2019, 14:55. FINDINGS: Liver is normal in size with a normal echo pattern. There are gallstones present in the gallbladder. There is no gallbladder wall thickening. The gallbladder wall measures 1.3 mm. No fluid around the gallbladder. No sonographic Weiss's signs. Visualized portions of the pancreas are unremarkable. Normal size right kidney without hydronephrosis. IMPRESSION: Cholelithiasis. No sonographic evidence of acute cholecystitis. Dictated by: Rubén Rojas M.D. on 10/26/2019 at 19:14 Approved by: Rubén oRjas M.D. on 10/26/2019 at 19:16 US-Pelvic: Radiologist's Impression: [address] [id number] Ultrasound Report Signed Patient: Feliz Tirado RMR#: [id number] : 1995Acct:[id number] Age/Sex: 24 / FDate of Service: 10/26/19 Loc: ED Accession Number: [id number] Procedure: US pelvic complete Ordering Provider: Lukasz Smith PROCEDURE: US PELVIC COMPLETE INDICATIONS: RIGHT PELVIC PAIN TECHNIQUE: Real-time scanning was performed of the pelvic organs, with image documentation. Additional endovaginal scanning was necessary due to incomplete visualization of the adnexal and endometrial structures by transabdominal scanning. COMPARISON: None. FINDINGS: Transabdominal scanning: Limited scanning through the kidneys shows no hydronephrosis. No pathologic free abdominal or pelvic fluid. Endovaginal scanning: Uterus: Uterus is normal in size at 8.2 x 4.1 x 5.6 cm cm. The endometrium measures 6.0 mm in combined thickness. Ovaries: Right ovary measures 2.9 x 2.3 x 2.4 cm. Left ovary measures 4.4 x 2.7 x 2.9 cm. There is a left ovarian simple cyst measuring 2.4 cm in maximum diameter. It is duplex vascularity in both ovaries. There is physiologic fluid present in the pelvis. IMPRESSION: Unremarkable pelvic ultrasound. Dictated by: Rubén Rojas M.D. on 10/26/2019 at 19:16 Approved by: Rubén Rojas M.D. on 10/26/2019 at 19:18 MDM Narrative Medical decision making narrative: This is a 24-year-old female who was seen in [facility] Emergency room yesterday with right abdominal pain and was diagnosed with gallstone per CT of abdomen and pelvis. Patient does not endorses constitutional symptoms but reports her pain is not managed with hydrocodone and Bentyl. Physical exam appreciated tender to palpate in right-sided mid and lower discomfort without Weiss's sign, distension, rigidity, rebound tenderness. Urine test yesterday was negative. Patient is afebrile with stable vital signs. Obtained ultrasound of gallbladder and pelvis. Abdominal ultrasound confirmed gallstone in the gallbladder without wall thickening. There was no fluid around the gallbladder and there was no sonographic Weiss's sound. Showed normal kidney without hydronephrosis and unremarkable pancreas. Pelvic ultrasound shows uterus in normal size, non complicated left ovarian simple cyst measuring 2.4 cm in maximum diameter without free fluid and with duplex vascularity. No leukocytosis with unremarkable chemistry test results. POC UA result indicates +++ urine leuks without urine nitrite but with small amount of protein and urobilinogen and there was no RBC seen. Micro urine test shows small amount of WBC with few bacteria and pending culture. Patient was treated with Macrobid 1st dose in ED and discharged to home with remaining dose for b.i.d. for 5 day course. Patient was apprehensive and states her pain is clip and hydrocodon does not want having trouble forming medications such as narcotic. Patient's pain was managed adequately in ED with IV Toradol and advised to take [id number] Tylenol and or Motrin as needed for discomfort. Also advised to take Bentyl for cramping discomfort and to take non fatty diet. Again informed patient additional imaging tests and blood tests were reassuring at this time does not indicate infection from gallstone and procedure could be arranged electively. Assured patient that her discomfort is in right mid to lower abdomen not typically for gallstone pain. Return precautions were discussed with the patient and [facility] Resource phone number has been provided for patient to select PCP. Patient verbalized understanding and agreement with the treatment plan. <Janak Carias MD - Last Filed: 11/02/19 17:59> Lab Data Labs: Lab Results 10/26/19 10/26/19 10/26/19 Range/Units 17:45 17:45 17:45 WBC 9.6 (4.5-11.0) X10^3/uL RBC 4.42 (4.0-5.2) X10^6/uL Hgb 13.7 (12.0-16.0) g/dL Hct 40.3 (36-46) % MCV 91.0 (80-100) fL MCH 31.0 (26-34) PG MCHC 34.0 (30-36) % RDW 13.0 (11.6-14.8) % Plt Count 218 (150-400) X10^3/uL Neut % (Auto) 68.6 (50-75) % Lymph % (Auto) 23.6 L (25-40) % Falls % (Auto) 6.7 (3-14) % Eos % (Auto) 0.8 L (2-4) % Baso % (Auto) 0.3 (0-2) % Neut # (Auto) 6600 (1299-9267) /uL Lymph # (Auto) 2300 (2796-6215) /uL Falls # (Auto) 600 (0-900) /uL Eos # (Auto) 100 (0-450) /uL Baso # (Auto) 0 (0-100) /uL Sodium 138 (137-145) mmol/L Potassium 4.2 (3.4-5.1) mmol/L Chloride 104 (98-107) mmol/L Carbon Dioxide 27 (22-32) mmol/L BUN 14 (7-17) mg/dL Creatinine 0.72 (0.52-1.04) mg/dL Estimated GFR > 60.0 (>60) mL/min BUN/Creatinine Ratio 19.4 (6-22) Glucose 86 (70-100) mg/dL Calcium 9.2 (8.4-10.2) mg/dL Total Bilirubin 0.3 (0.2-1.3) mg/dL AST 27 (14-36) IU/L ALT 20 (<35) IU/L Alkaline Phosphatase 67 (38-126) U/L Total Protein 7.5 (6.3-8.2) g/dL Albumin 4.2 (3.5-5.0) g/dL Globulin 3.3 (1.7-4.1) g/dL Albumin/Globulin Ratio 1.3 (1.0-2.8) Lipase 113 (23-300) U/L Urine RBC 0-1/hpf (0-5/HPF) Urine WBC 5-10/hpf H (0-5/HPF) Ur Squamous Epith Cells 1-5 /hpf (0-5/HPF) Amorphous Sediment 1+ Urine Bacteria Few (2-10) H (None) Ur Culture Indicated? Specimen cultured Point of care testing: Urine Dip Bedside Urine Glucose Negative Bedside Urine Bilirubin - Negative Bedside Urine Ketone - Negative Urine Specific [place] 1.025 Bedside Urine Occult Blood - Negative Bedside Urine pH 6 Bedside Urine Protein +/- 15 Bedside Urine Urobilinogen +/- 1mg Bedside Urine Nitrite - Negative Bedside Urine Leukocytes +++ 500 Esterase Discharge Plan Departure Patient Disposition: Home Clinical Impression: Gallstones Abdominal pain Qualifiers: Abdominal location: right lower quadrant Qualified Code(s): R10.31 - Right lower quadrant pain UTI (urinary tract infection) Qualifiers: Urinary tract infection type: site unspecified Hematuria presence: without hematuria Qualified Code(s): N39.0 - Urinary tract infection, site not specified Discharge Date/Time: 10/26/19 20:20 Instructions: DI for Gallstones, DI for Urinary Tract Infection (UTI), DI for Abdominal Pain-Adult Activity Restrictions/Additional Instructions: You have been diagnosed with [abdominal pain, you have known gallstones per CT test yesterday and verified today's ultrasound test on the abdomen. There is no gallbladder were thickening. There is no fluid around the gallbladder. Normal pancreas and kidney. Ultrasound test does not show evidence inflammation, infection of the gallbladder. Pelvic ultrasound shows normal kidneys, a simple left ovarian cyst measuring up to 2.4 cm. He was unremarkable pelvic ultrasound. Urine test shows large amount of urine leukocyte esterase of +++500 with negative Urine Nitrite and small amount of protein. Your test yesterday was negative. There was no increase in white count. Was unremarkable with normal liver function tests and lipase. You were treated with IV Toradol for pain and Macrobid antibiotic medication for UTI. Urine is pending for culture and you will receive a phone call if you need different antibiotic medication.]. What to do: *Take your medications as directed. Please take Macrobid twice a day for next 5 days. Please avoid fatty foods and hydrate herself adequately. You can continue to take dicyclomine for cramping abdominal discomfort and Zofran for nausea as needed. You can take [id number] Tylenol 2 tabs of regular or extra-strength up to 4 times a day as needed. Ibuprofen 400-600 mg 3 times a day as needed with food for discomfort. You have hydrocortisone that was provided yesterday. *Follow up with your primary care provider in 2-3 days, call for an appointment. Gallstone could be removed electively and contact general surgeon as given the information from yesterday's visit. Let them know you were seen in the ED and that we asked you to be seen in follow up. *Return to ED if you have any new, worsening, or concerning symptoms, such as [chest pain, breathing difficulty, unable to tolerate fluids, fever, feeling like fainting or any acute concerns]. Prescriptions: New nitrofurantoin monohyd/m-cryst [Macrobid] 100 mg capsule 100 mg PO BID 5 Days Qty: 9 RF: 0 No Action triamcinolone acetonide 0.5 % cream 1 applictn TOP BID Qty: 15 RF: 0 Nexplanon 68 mg Implant 1 mg SUBDERMAL .ONCE RF: 0 ondansetron HCl [Zofran] 4 mg tablet 4 mg PO Q6H PRN (Reason: nausea and vomiting) Qty: 12 RF: 0 hydrocodone-acetaminophen [[place]] 5-325 mg tablet 1 tab PO Q4-6H PRN (Reason: pain) Qty: 12 RF: 0 dicyclomine 20 mg tablet 20 mg PO QID PRN (Reason: abdominal pain) Qty: 15 RF: 0 Referrals: [facility] [Provider Group] [facility] [Outside]
== END 2019-10-26 20:20 | disposition home or self-care (01) ==
PROVIDERS: Emergency Provider Nurse Practitioner Family
DX: K80.80 Other cholelithiasis without obstruction (principal); R10.31 Right lower quadrant pain; N39.0 Urinary tract infection, site not specified
CPT/HCPCS: 36415; 76705; 76830; 76856; 80053; 81003; 81015; 83690; 85025; 87086; 96374; 99284; J1885

== ENCOUNTER 2023-02-16 10:36 | Emergency (ER) | payer OTHER, MEDICAID, SELFPAY ==
[2023-02-16 11:02] VITALS: BP 133/65; PULSE 78; RESP 16; TEMP 36.6; O2SAT 99; BMI 25.6
--- NOTE | 2023-02-16 11:07 | DI.US.S_ITS ---
PROCEDURE: US PELVIC COMPLETE INDICATIONS: RIGHT LOWER QUADRANT PAIN/BLEEDING. TECHNIQUE: Real-time scanning was performed of the pelvic organs, with image documentation. Additional endovaginal scanning was necessary due to incomplete visualization of the adnexal and endometrial structures by transabdominal scanning. COMPARISON: [facility], US, US PELVIC COMPLETE, 10/26/2019, 18:46. FINDINGS: Uterus: Uterus is anteverted and normal in size at 8.8 x 5.4 x 4.0 cm. The myometrium is homogeneous. The endometrium measures 3 mm combined thickness. Trace anechoic fluid within the cervix. Ovaries: The right ovary measures 4.5 x 3.3 x 2.8 cm, with a calculated ovarian volume of 21 cc. The left ovary measures 3.8 x 2.3 x 1.6 cm, with a calculated ovarian volume of 7 cc. The ovaries have a normal sonographic appearance. Less than 12 follicles can be seen in each ovary. No adnexal masses are seen. Right ovarian cyst with daughter follicle; no follow-up necessary. Other: No pathologic free abdominal or pelvic fluid. IMPRESSION: Unremarkable pelvic ultrasound. Endometrial stripe measures 3 mm, within normal limits. We strive to produce accurate, complete, and clear reports of imaging services. To assist us in improving patient care, this report was composed using standard report templates and voice recognition software. Therefore, it may contain abnormal punctuation, insertions and/or omissions. Occasional wrong-word or sound-alike substitutions may occur. Though we review the report and make efforts to correct it, we do recommend that the report be read carefully in proper context to recognize any text inaccuracies. Dictated by: Esau Pardo M.D. on 02/16/2023 at 12:08 Approved by: Esau Pardo M.D. on 02/16/2023 at 12:10
--- NOTE | 2023-02-16 11:09 | ED.PREGNANCY ---
HPI - <SUBHASH Gutierrez - Last Filed: 02/16/23 12:39> General Chief complaint: Vaginal Bleeding Stated complaint: poss. ovarian cyst rupture; bleeding Time Seen by Provider: 02/16/23 11:07 Source: patient Mode of arrival: Ambulatory Limitations: no limitations History of Present Illness HPI Narrative: This is a 27-year-old female presents to the emergency department complaining of right lower quadrant pain with heavy vaginal bleeding. Is on Nexplanon for control. States that she had a sudden onset left lower quadrant pain with vaginal bleeding LMP was 10 days ago, reports it was normal for her. States that her vaginal bleeding is heavy and she feels dizzy sometimes. Denies vomiting or nausea, fever, or sweating but endorses having chills overnight. States it pain is more in the pelvic region and suprapubic area than right lower quadrant, denies any stool changes. Related Data Home Medications Medication Instructions Recorded Confirmed etonogestrel 68 mg subdermal 1 mg subdermal .ONCE 10/25/19 10/26/19 implant (Nexplanon) Previous Rx's Medication Instructions Recorded triamcinolone acetonide 0.5 % 1 applictn topical BID #15 grams 10/12/19 topical cream dicyclomine 20 mg tablet 20 mg PO QID PRN abdominal pain 10/25/19 #15 tabs hydrocodone 5 mg-acetaminophen 325 1 tab PO Q4-6H PRN pain #12 tabs 10/25/19 mg tablet ([place]) ondansetron HCl 4 mg tablet 4 mg PO Q6H PRN nausea and 10/25/19 (Zofran) vomiting #12 tabs nitrofurantoin 100 mg PO BID #10 caps 02/16/23 monohydrate/macrocrystals 100 mg capsule (Macrobid) Allergies Allergy/AdvReac Type Severity Reaction Status Date / Time No Known Drug Allergies Allergy Verified 02/16/23 11:07 Review of Systems <SUBHASH Gutierrez - Last Filed: 02/16/23 12:39> Review of Systems ROS Unobtainable: All systems reviewed & are unremarkable except as noted in HPI and below Exam <SUBHASH Gutierrez - Last Filed: 02/16/23 12:39> Narrative Exam Narrative: Reviewed vitals signs and nursing notes. General: Pleasant, sitting upright, in no acute distress, well groomed, afebrile HEENT: symmetrical facial expressions, moist mucous membranes, neck is supple CV: regular rate and rhythm, warm extremities Respiratory: normal work of breathing, without tachypnea or hypoxia. GI: abdomen soft, nondistended, without CVA tenderness bilaterally. MSK: moves all extremities, no weakness, normal tone, ambulatory without deficit Skin: brisk capillary refill, without rash or wound Neuro: clear speech and normal cognition, A&O x3, GCS 15, no focal motor or sensation deficits Initial Vital Signs Initial Vital Signs: Vital Signs Temperature 98 F 02/16/23 11:02 Pulse Rate 78 02/16/23 11:02 Respiratory Rate 16 02/16/23 11:02 Blood Pressure 133/65 02/16/23 11:02 Pulse Oximetry 99 02/16/23 11:02 Oxygen Delivery Method Room Air 02/16/23 11:02 <Kranthi Dumont DO - Last Filed: 02/17/23 06:29> Initial Vital Signs Initial Vital Signs: Vital Signs Temperature 98 F 02/16/23 11:02 Pulse Rate 78 02/16/23 11:02 Respiratory Rate 16 02/16/23 11:02 Blood Pressure 133/65 02/16/23 11:02 Pulse Oximetry 99 02/16/23 11:02 Oxygen Delivery Method Room Air 02/16/23 11:02 Course <SUBHASH Gutierrez - Last Filed: 02/16/23 12:39> Orders Ordered: Discontinued Medications Ibuprofen (Ibuprofen 400 Mg Tablet) 800 mg PO NOW ONE Stop: 02/16/23 11:12 Last Admin: 02/16/23 11:58 Dose: 800 mg Documented By: BETTY Nitrofurantoin Macrocrystals (Nitrofurantoin Er 100 Mg Capsule) 100 mg PO NOW ONE Stop: 02/16/23 12:32 Last Admin: 02/16/23 12:37 Dose: 100 mg Documented By: SHEYLA Vital Signs Vital signs: Vital Signs - 8 hr 02/16/23 11:02 Temperature 98 F Pulse Rate 78 Respiratory Rate 16 Blood Pressure 133/65 Pulse Oximetry 99 Oxygen Delivery Method Room Air <Kranthi Dumont DO - Last Filed: 02/17/23 06:29> Orders Ordered: Discontinued Medications Ibuprofen (Ibuprofen 400 Mg Tablet) 800 mg PO NOW ONE Stop: 02/16/23 11:12 Last Admin: 02/16/23 11:58 Dose: 800 mg Documented By: BETTY Nitrofurantoin Macrocrystals (Nitrofurantoin Er 100 Mg Capsule) 100 mg PO NOW ONE Stop: 02/16/23 12:32 Last Admin: 02/16/23 12:37 Dose: 100 mg Documented By: SHEYLA Vital Signs Vital signs: Vital Signs - 8 hr 02/16/23 11:02 Temperature 98 F Pulse Rate 78 Respiratory Rate 16 Blood Pressure 133/65 Pulse Oximetry 99 Oxygen Delivery Method Room Air MDM - OB/Uterine Contractions <Nuha Puri, FILTER WASHER - Last Filed: 02/16/23 12:39> Lab Data 02/16/23 11:18 Labs: Lab Results 02/16/23 02/16/23 Range/Units 11:18 12:18 WBC 7.1 (4.5-11.0) X10^3/uL RBC 4.26 (4.0-5.2) X10^6/uL Hgb 13.8 (12.0-16.0) g/dL Hct 40.0 (36-46) % MCV 93.8 (80-100) fL MCH 32.4 (26-34) PG MCHC 34.5 (30-36) % RDW 12.6 (11.6-14.8) % Plt Count 223 (150-400) X10^3/uL Neut % (Auto) 55.2 (50-75) % Lymph % (Auto) 27.2 (25-40) % [place] % (Auto) 8.0 (3-14) % Eos % (Auto) 9.4 H (2-4) % Baso % (Auto) 0.2 (0-2) % Neut # (Auto) 3900 (4774-5559) /uL Lymph # (Auto) 1900 (5377-8461) /uL [place] # (Auto) 600 (0-900) /uL Eos # (Auto) 700 H (0-450) /uL Baso # (Auto) 0 (0-100) /uL Urine RBC 5-10/hpf H (0-5/HPF) Urine WBC 1-5/hpf (0-5/HPF) Ur Squamous Epith Cells 1-5 /hpf (0-5/HPF) Urine Bacteria Few (2-10) H (None) Ur Culture Indicated? 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 Procedure: US pelvic complete Ordering Provider: Nuha Puri PROCEDURE:? US PELVIC COMPLETE ? INDICATIONS:? RIGHT LOWER QUADRANT PAIN/BLEEDING. ? TECHNIQUE:? Real-time scanning was performed of the pelvic organs, with image documentation.? Additional endovaginal scanning was necessary due to incomplete visualization of the adnexal and endometrial structures by transabdominal scanning.? ? COMPARISON:? [facility], , US PELVIC COMPLETE, 10/26/2019, 18:46. ? FINDINGS:? ?? Uterus:? Uterus is anteverted and normal in size at 8.8 x 5.4 x 4.0 cm. The myometrium is homogeneous. ? The endometrium measures 3 mm combined thickness.? Trace anechoic fluid within the cervix. ? Ovaries:? The right ovary measures 4.5 x 3.3 x 2.8 cm, with a calculated ovarian volume of 21 cc. The left ovary measures 3.8 x 2.3 x 1.6 cm, with a calculated ovarian volume of 7 cc. The ovaries have a normal sonographic appearance. Less than 12 follicles can be seen in each ovary.? No adnexal masses are seen.? Right ovarian cyst with daughter follicle; no follow-up necessary. ? Other:? No pathologic free abdominal or pelvic fluid. ? ? IMPRESSION:? Unremarkable pelvic ultrasound.? Endometrial stripe measures 3 mm, within normal limits. ? ? We strive to produce accurate, complete, and clear reports of imaging services. To assist us in improving patient care, this report was composed using standard report templates and voice recognition software. Therefore, it may contain abnormal punctuation, insertions and/or omissions. Occasional wrong-word or sound-alike substitutions may occur. Though we review the report and make efforts to correct it, we do recommend that the report be read carefully in proper context to recognize any text inaccuracies. ? ? Dictated by: Esau Pardo M.D. on 02/16/2023 at 12:08 ? ? Approved by: Esau Pardo M.D. on 02/16/2023 at 12:10 ? [facility] Narrative Medical decision making narrative: Chief Complaint: Right pelvic/suprapubic pain, vaginal bleeding Primary historian: patient Multiple etiologies for patient's complaint considered including, but not limited to: PID, vaginitis, ovarian cyst, ruptured ovarian cyst, irregular menses urinary tract infection, ovarian torsion, ectopic I have independently reviewed the patient's vital signs and nursing notes as well as prior records if available. Ordered CBC, pelvic ultrasound, UA/U preg, ibuprofen for pain 1119 patient ambulated to ultrasound, in no distress, afebrile, without nausea or vomiting My interpretation of imaging: Ultrasound shows right-sided ovarian cyst, no free pelvic fluid Urine microscopy shows few bacteria and RBCs, patient has suprapubic tenderness and urinary frequency, will treat for UTI and urine culture was ordered. Treated patient with Macrobid, encourage hydration, encouraged ibuprofen and Tylenol as needed for menstrual cramping and vaginal bleeding. As patient to follow-up with PCP and or back up scan coordinator for pelvic exam is worsening pain or vaginal pain. Urine dip is negative for WBCs, sent for micro, positive for blood Your microscopy with bacteria and blood. Urine culture is pending Social considerations that may affect disposition: none Questions are addressed and there is agreement with the plan and for follow-up. I consulted with the ED attending physician Dr. Dumont as needed for higher level of care considerations and they were available for discussion and recommendations regarding plan of care and diagnostic testing. Patient is appropriate for outpatient management. <Kranthi Dumont, DO - Last Filed: 02/17/23 06:29> Lab Data Labs: Lab Results 02/16/23 02/16/23 Range/Units 11:18 12:18 WBC 7.1 (4.5-11.0) X10^3/uL RBC 4.26 (4.0-5.2) X10^6/uL Hgb 13.8 (12.0-16.0) g/dL Hct 40.0 (36-46) % MCV 93.8 (80-100) fL MCH 32.4 (26-34) PG MCHC 34.5 (30-36) % RDW 12.6 (11.6-14.8) % Plt Count 223 (150-400) X10^3/uL Neut % (Auto) 55.2 (50-75) % Lymph % (Auto) 27.2 (25-40) % [place] % (Auto) 8.0 (3-14) % Eos % (Auto) 9.4 H (2-4) % Baso % (Auto) 0.2 (0-2) % Neut # (Auto) 3900 (8282-2995) /uL Lymph # (Auto) 1900 (3686-1518) /uL [place] # (Auto) 600 (0-900) /uL Eos # (Auto) 700 H (0-450) /uL Baso # (Auto) 0 (0-100) /uL Urine RBC 5-10/hpf H (0-5/HPF) Urine WBC 1-5/hpf (0-5/HPF) Ur Squamous Epith Cells 1-5 /hpf (0-5/HPF) Urine Bacteria Few (2-10) H (None) Ur Culture Indicated? Cult not indicated Discharge Plan Departure Patient Disposition: Home Clinical Impression: Vaginal bleeding UTI (urinary tract infection) Qualifiers: Urinary tract infection type: acute cystitis Hematuria presence: with hematuria Qualified Code(s): N30.01 - Acute cystitis with hematuria Instructions: DI for Urinary Tract Infection (UTI), DI for Vaginal Bleeding Activity Restrictions/Additional Instructions: *You have been diagnosed with a right-sided ovarian cyst without concern for follow-up. Please follow-up with primary care for your regular Women's Health and or follow-up with 1 of the OBGYN here for your needs. The ultrasound does not show any dangerous findings and there is no free fluid in your pelvis. Please take ibuprofen 600 mg every 6 hours with food and water for cramping and vaginal bleeding it should help decrease this for you. Sometimes ovarian cyst cause shifts in hormones which can affect your bleeding. If you have vaginal pain, please be seen for evaluation of infection. The urine has some bacteria in, and some blood, the blood is most likely from the vagina however with a UTI you can have blood in your urine infection of the bladder. I hope you start feeling better soon, it could have been cyst that ruptured. There is a small amount of fluid within the cervix which is likely blood that is coming from the uterus. Your blood count is stable and no signs of bloodstream infection. *What to do: *Please continue to take your regular medications as directed. [ ] New medication prescriptions sent to your pharmacy: [ ] [x ] New medication written as a paper prescription [ ] No new medications given *Please call and schedule follow up with your primary care provider in 2-3 days, at least for an update. Let them know you were seen in the Emergency Department for the above problem. We will electronically transmit a record of today's note if your PCP or specialist is in our system. *If you do not have a primary care provider please contact [phone] to establish care with one of the [facility] primary care providers. *Return to the Emergency Department for worsening symptoms, inability to keep liquids down, fever greater than 101F, chills, or other concerning symptom. Prescriptions: New nitrofurantoin monohyd/m-cryst [Macrobid] 100 mg capsule 100 mg PO BID Qty: 10 0RF Rx Instructions: must administer with a meal/food No Action triamcinolone acetonide 0.5 % cream 1 applictn TOP BID Qty: 15 0RF Nexplanon 68 mg Implant 1 mg SUBDERMAL .ONCE ondansetron HCl [Zofran] 4 mg tablet 4 mg PO Q6H PRN (Reason: nausea and vomiting) Qty: 12 0RF hydrocodone-acetaminophen [[place]] 5-325 mg tablet 1 tab PO Q4-6H PRN (Reason: pain) Qty: 12 0RF Rx Instructions: Take 1-2 tabs as needed every 4-6 hours for severe pain and disconfort dicyclomine 20 mg tablet 20 mg PO QID PRN (Reason: abdominal pain) Qty: 15 0RF Referrals: Miscellaneous,Doctor, MD [Primary Care Provider] - Stand Alone Forms: Patient Portal/API <Kranthi Dumont DO - Last Filed: 02/17/23 06:29> [facility] Att[facility]: I was immediately available in the department for consultation. Documentation has been reviewed. I agree with assessment and plan.
[2023-02-16 11:25] LABS: Add Manual Diff / Slide Review NO; Basophils Absolute Auto 0 /uL (0-100); Basophils Percent Auto 0.2 % (0-2); Eosinophils Absolute Auto 700 /uL (0-450); Eosinophils Percent Auto 9.4 % (2-4); Hemoglobin 13.8 g/dL (12.0-16.0); Lymphocytes Absolute Auto 1900 /uL (1100-4500); Lymphocytes Percent Auto 27.2 % (25-40); Mean Corpuscular HGB Conc 34.5 % (30-36); Mean Corpuscular Hemoglobin 32.4 PG (26-34); Mean Corpuscular Volume 93.8 fL (80-100); Monocytes Absolute Auto 600 /uL (0-900); Neutrophils Absolute Auto 3900 /uL (1500-7000); Neutrophils Percent Auto 55.2 % (50-75); Platelet Count 223 X10^3/uL (150-400); Red Blood Cell Count 4.26 X10^6/uL (4.0-5.2); Red Cell Distribution Width 12.6 % (11.6-14.8); White Blood Cell Count 7.1 X10^3/uL (4.5-11.0)
[2023-02-16] MEDS: IBUPROFEN 400 MG TABLET 800 MG PO (11:58)
[2023-02-16 12:30] LABS: Bacteria Urine Few (2-10); Culture Indicated Urine Cult Not Indicated; RBC Urine 5-10/HPF (0-5/HPF); Squamous Epithelial Cell Urine 1-5 /HPF (0-5/HPF); WBC Urine 1-5/HPF (0-5/HPF)
[2023-02-16] MEDS: NITROFURANTOIN ER 100 MG CAPSULE PO (12:37)
[2023-02-16 12:42] VITALS: BP 128/78; PULSE 66; RESP 17; O2SAT 99
== END 2023-02-16 12:44 | disposition home or self-care (01) ==
PROVIDERS: Emergency Provider Nurse Practitioner Critical Care Medicine
DX: N30.01 Acute cystitis with hematuria (principal); N93.9 Abnormal uterine and vaginal bleeding, unspecified
CPT/HCPCS: 36415; 76830; 76856; 81015; 85025; 87086; 93975; 99284